=== PATIENT | female | born 1995 | race Caucasian/White ===

== ENCOUNTER 2021-11-16 22:50 | Emergency (ER) | payer OTHER, MEDICAID, SELFPAY ==
--- NOTE | ~2021-11-16 | CT_ITS ---
EXAMINATION: CT abdomen pelvis w con DATE: 11/17/2021 00:34 INDICATION: Increased lower abdominal pain. Postop. TECHNIQUE: Computed tomography (CT) of the abdomen and pelvis was performed with 100 cc Omnipaque 350 intravenous contrast. The dose-length product was 249.01 mGy-cm. Automated exposure control and iter ative reconstruction technique were employed. COMPARISON: No prior studies for comparison. . FINDINGS: Lung bases are unremarkable. Heart size normal. No significant pleural or pericardial effus ion. There is mild periportal edema, likely related to hydration status. Gallbladder is present. Smal l amount of free fluid, likely related to recent surgery. Small amount of subcutaneous gas likely tro car site for recent surgery. No evidence for abscess. The spleen, pancreas, adrenal glands and kidneys are unremarkable. Nonobstructive bowel gas pattern. IMPRESSION: 1. No acute abdominal abnormality. Postsurgical changes noted. Reviewed, dictated and finalized at location A.
[2021-11-16] MEDS: SODIUM CHLORIDE 0.9% IV 1,000 ML 999 ML IV CONT (22:35)
[2021-11-16 22:51] VITALS: BP 117/81; PULSE 71; RESP 20; TEMP 37.2; O2SAT 99
[2021-11-16 23:11] LABS: Basophils Percent Auto 0.3 % (0.2-1.2); Eosinophils Absolute Auto 0.2 K/mm3 (0-0.3); Eosinophils Percent Auto 1.5 % (0-4.4); Hematocrit 37.2 % (37.0-47.0); Hemoglobin 12.9 g/dL (12.0-15.0); Immature Granulocyte Absolute 0.02 K/mm3 (0.00-0.031); Immature Granulocyte Percent A 0.2 % (0-0.5); Lymphocytes Absolute Auto 2.64 K/mm3 (0.9-3.2); Lymphocytes Percent Auto 25.3 % (18.3-44.2); Mean Corpuscular HGB Conc 34.7 g/dl (32-36); Mean Corpuscular Hemoglobin 31.9 pg (26-34); Mean Corpuscular Volume 91.9 fl (80-100); Mean Platelet Volume 10.8 fl (7.4-10.4); Monocytes Absolute Auto 0.5 K/mm3 (0.1-0.6); Monocytes Percent Auto 5.1 % (2.6-8.5); Neutrophils Absolute Auto 7.1 K/mm3 (1.3-6.7); Neutrophils Percent Auto 67.6 % (45.5-73.1); Platelet Count Result 168 k/mm3 (150-375); Red Blood Count 4.05 M/mm3 (4.2-5.4); Red Cell Distribution Width 11.5 % (11.5-14.5); White Blood Count 10.4 K/mm3 (4.5-10.0)
[2021-11-16 23:22] LABS: Alanine Aminotransferase 14 U/L (4-35); Albumin Level 4.1 g/dL (3.5-5.1); Alkaline Phosphatase 48 U/L (38-126); Anion Gap 7 mmol/L (8-16); Aspartate Amino Transferase 21 U/L (14-36); Bilirubin,Total 0.3 mg/dL (0.2-1.3); Blood Urea Nitrogen 12 mg/dL (7-17); Calcium 8.5 mg/dL (8.4-10.2); Carbon Dioxide 24 mmol/L (22-30); Chloride 107 mmol/L (98-107); Estimated CRCL calculation 90 ml/min; Estimated Glomerular Filt Rate > 60; Glucose 133 mg/dL (65-110); Lactic Acid Reflex 1.6 mmol/L (0.7-2.1); Lipase 49 U/L (23-300); Potassium 3.5 mmol/L (3.4-5.0); Sodium 138 mmol/L (137-145)
--- NOTE | 2021-11-16 23:35 | ED.GENADULT ---
HPI - General Adult General Chief complaint: Seizure Stated complaint: SEIZURE ABD PAIN AND NAUSEATED Time Seen by Provider: 11/16/21 22:57 Source: patient and RN notes reviewed Mode of arrival: EMS Limitations: no limitations History of Present Illness HPI narrative: 26-year-old female presents the emergency department for evaluation of lower abdominal pain and possible seizure-like activity today. Patient did have a ex lap for abdominal pain yesterday by Dr Ortiz at [facility]. Patient states today she had worsening abdominal pain. Patient states she has been trying to drink plenty of fluids. Patient states that while she was walking she felt like she was going to pass out and she fell into her boyfriend's arms and had shaking for about 15 seconds. Patient's boyfriend lowered her to the ground and states immediately she asked how long she was out. Boyfriend does not describe a postictal phase. Patient has no prior seizure history. Related Data Allergies Allergy/AdvReac Type Severity Reaction Status Date / Time No Known Allergies Allergy Verified 11/17/21 00:54 Review of Systems Review of Systems: CONSTITUTIONAL: Denies fever, chills, or sweats. EYES: Denies visual changes, redness, or discharge. ENT: Denies rhinorrhea, congestion, sore throat, or otalgia. CARDIOVASCULAR: Denies chest pain, palpitations, or edema. RESPIRATORY: Denies cough or dyspnea. GASTROINTESTINAL: Lower abdominal pain GENITOURINARY: Denies dysuria or hematuria. SKIN: Denies rash or itching. MUSCULOSKELETAL: Denies back pain, joint pain, or myalgia. NEUROLOGIC: Denies headache, numbness, or weakness. Exam Narrative: APPEARANCE: Well appearing, no pain, no distress, well-nourished. HEAD: normocephalic, atraumatic. EYES: PERRLA/EOMI, conjunctivae clear. NOSE: Normal no drainage EARS:TMS clear with good light reflex. THROAT: Pharynx clear, no exudate. NECK: Supple. No adenopathy, no masses. RESPIRATORY: Airway patent, respirations nonlabored. Clear to auscultation bilaterally, no rales, rhonchi, wheezing. CARDIOVASCULAR: Regular rate and rhythm without murmurs rubs or gallops. ABDOMINAL: well appearing trocar sites. Mild tenderness to palpation across the entire abdomen. MUSCULOSKELETAL: Moves all extremities. Strength/ROM intact, No edema, No calf tenderness. SKIN: Warm, dry. Normal Color Course Course Emergency Course: CT scan showed no significant abnormalities. Patient did feel improved with treatment. I discussed the differential diagnosis between seizure and vasovagal syncope with the patient. I feel most likely the patient had a vasovagal episode. Patient was encouraged to follow seizure precautions including not working at heights, not bathing alone and not driving until she had close follow-up with her primary care physician. Patient was also encouraged to drink plenty of fluids. All questions and concerns were addressed. Patient does have follow-up scheduled with her REGISTRATION REPRESENTATIVE. Vital Signs Vital signs: Vital Signs Temperature 99.0 F 11/16/21 22:51 Pulse Rate 71 11/16/21 22:51 Respiratory Rate 20 11/16/21 22:51 Blood Pressure 117/81 11/16/21 22:51 Pulse Oximetry 99 11/16/21 22:51 Temperature 99.0 F 11/16/21 22:51 Pulse Rate 74 11/17/21 02:10 Respiratory Rate 16 11/17/21 02:10 Blood Pressure 107/85 11/17/21 02:10 Pulse Oximetry 99 11/17/21 02:10 Medical Decision Making Vital Signs Vital Signs: Vital Signs Temperature 99.0 F 11/16/21 22:51 Pulse Rate 71 11/16/21 22:51 Respiratory Rate 20 11/16/21 22:51 Blood Pressure 117/81 11/16/21 22:51 Pulse Oximetry 99 11/16/21 22:51 Temperature 99.0 F 11/16/21 22:51 Pulse Rate 74 11/17/21 02:10 Respiratory Rate 16 11/17/21 02:10 Blood Pressure 107/85 11/17/21 02:10 Pulse Oximetry 99 11/17/21 02:10 Lab Data Lab results reviewed: Yes I reviewed the patient's lab results. Result diagrams: 11/16/21 23:05 11/16/21
[2021-11-17 00:13] LABS: Add Urine Microscopic? YES; Amorphous Sediment Urine Few; Appearance Urine Cloudy (Clear); Bacteria Urine Trace /hpf; Bilirubin Urine Negative (Negative); Blood Urine Negative (Negative); Color Urine Yellow (Yellow); Glucose Urine UA Negative (Negative); Ketones Urine Negative (Negative); Leukocyte Esterase Ur Negative LEU/UL (Negative); Mucus Urine Rare /lpf; Nitrate Urine Negative (Negative); Protein Urine Negative (Negative); RBC Urine 0-2 /hpf (0-2); Specific Grav Ur 1.014 (1.001-1.035); Squamous Epithelial Cell Urine Moderate /hpf (Few); Urobilinogen Urine Negative mg/dL (<2.0); WBC Urine 0-3 /hpf
[2021-11-17] MEDS: SODIUM CHLORIDE 0.9% IV 1,000 ML 999 ML IV CONT (01:02)
[2021-11-17 01:30] VITALS: BP 114/72; PULSE 69; RESP 17; O2SAT 99
[2021-11-17 01:31] VITALS: PULSE 69
--- NOTE | 2021-11-17 01:31 | PC.NURSE ---
Assumed care of pt, pt is alert and upright on stretcher, discussed POC. Pt up for ambulation assessment as ordered by EDP.
[2021-11-17 02:10] VITALS: BP 107/85; PULSE 74; RESP 16; O2SAT 99
== END 2021-11-17 02:14 | disposition home or self-care (01) ==
PROVIDERS: Emergency Provider Emergency Medicine
DX: R10.30 Lower abdominal pain, unspecified (principal); R55 Syncope and collapse
CPT/HCPCS: 36415; 74177; 80053; 81001; 81025; 83605; 83690; 85025; 96360; 96361; 99284; J7030; Q9967